=== PATIENT | male | born 1955 | race Caucasian/White ===

== ENCOUNTER 2022-06-25 09:59 | Inpatient (IN) | payer OTHER ==
[~2022-06-25] VITALS: Ht 177.8 cm; Wt 100.0 kg
[2022-06-25 10:21] LABS: Basophils # (auto) 0 10 ^3/uL (0-0.2); Basophils % (auto) 0.4 % (0.0-2.0); Hemoglobin 15.9 g/dL (13.5-17.5); Monocytes # (auto) 0.7 10 ^3/uL (0-1.3); White Blood Cell 11.1 10^3/uL (4.4-10.8)
[2022-06-25 10:23] LABS: Eosinophils # (auto) 0.3 10 ^3/uL (0-0.8); Eosinophils % (auto) 2.3 % (0.0-7.0); Hematocrit 47.8 % (41.0-53.0); Lymphocytes % (auto) 9.1 % (10.0-50.0); Mean Corpuscular Hemoglobin 34.2 pg (28.0-32.0); Mean Corpuscular Hgb Conc. 33.4 g/dL (32.0-36.0); Mean Corpuscular Volume 102.5 fL (80.0-100.0); Monocytes % (auto) 5.9 % (0.0-12.0); Neutrophils # (auto) 9.1 10 ^3/uL (1.6-8.6); Neutrophils % (auto) 82.3 % (37.0-80.0); Red Blood Cells 4.66 10^6/uL (4.5-5.90); Red Cell Distribution Width 12.9 % (11.8-14.3)
[2022-06-25] MEDS ORDERED: FUROSEMIDE 40 MG/4 ML VIAL IV ONE (10:30)
[2022-06-25] MEDS ORDERED: IPRATROPIUM BROM 0.5 MG/2.5ML INH SOL NEB ONE (10:30)
[2022-06-25] MEDS ORDERED: ASPirin 325 MG TAB PO ONE (10:30)
[2022-06-25] MEDS ORDERED: ALBUTEROL SULF 2.5 MG/0.5ML(0.5%) NEB SOLN NEB ONE (10:30)
[2022-06-25] MEDS ORDERED: ALBUTEROL MEDNEB 2.5 mg/3ml NEB ONE (10:31)
[2022-06-25 10:35] LABS: Albumin 4.2 g/dL (3.4-5.0); Calcium 9.5 mg/dL (8.5-10.1); Potassium 4.4 mmol/L (3.5-5.1)
[2022-06-25 10:38] LABS: BUN/Creatinine Ratio 13.9; Bilirubin, Total 0.6 mg/dL (0.2-1.0); Total Protein 7.6 g/dL (6.4-8.2)
[2022-06-25] MEDS ORDERED: MORPHINE SULFATE INJ 2 MG/ml SYRG IV PRN (13:30)
[2022-06-25] MEDS ORDERED: NITROGLYCERIN 0.4 MG SL TAB SL PRN (13:30)
[2022-06-25 13:48] VITALS: BP 172/93
[2022-06-25] MEDS ORDERED: cefTRIAXone 1GM/50ML D5W 50 ML IV ONE (14:00)
[2022-06-25] MEDS ORDERED: PANTOPRAZOLE 40 MG/10 ML VIAL INJ IV ONE (14:00)
[2022-06-25] MEDS ORDERED: AZITHROMYCIN 500MG/ 250ML 250 ML IV ONE (14:00)
[2022-06-25] MEDS ORDERED: methylPREDNISolone SOD SUCC 125 MG/2 ML VL IV ONE (14:15)
[2022-06-25 14:36] LABS: Cholesterol 216 mg/dL (< 200); HDL Cholesterol 64 mg/dL (40-59); LDL Cholesterol 142 mg/dL (< 100); Triglycerides 133 mg/dL (< 150)
[2022-06-25] MEDS: ALBUTEROL SULF 2.5 MG/0.5ML(0.5%) NEB SOLN NEB PRN (15:40)
[2022-06-25] MEDS: ACETAMINOPHEN 325 MG TAB PO PRN (15:43)
[2022-06-25] MEDS: SODIUM CHLORIDE 0.9% 1,000 ML IV SCH (16:22)
[2022-06-25] MEDS ORDERED: IPRATROPIUM BROM 0.5 MG/2.5ML INH SOL NEB SCH (18:00)
[2022-06-25] MEDS ORDERED: ALBUTEROL MEDNEB 2.5 mg/3ml NEB NEB SCH (18:00)
[2022-06-25] MEDS ORDERED: KETOROLAC TROMETH 30 MG/ML 1ML VIAL IV PRN (19:00)
[2022-06-25] MEDS ORDERED: KETOROLAC TROMETH 30 MG/ML 1ML VIAL IV ONE (19:00)
[2022-06-25 21:37] LABS: Urine Bacteria NONE SEEN /hpf (None Seen); Urine Blood Negative /uL (Negative); Urine Hyaline Cast FEW /lpf (0 - 2); Urine Mucus FEW (None Seen); Urine Specific Gravity 1.021 (1.001-1.035); Urine WBC 1 /hpf (0 - 3)
[2022-06-25] MEDS: methylPREDNISolone SOD SUCC 125 MG/2 ML VL IV SCH (21:41)
[2022-06-25] MEDS: IPRATROPIUM BROM 0.5 MG/2.5ML INH SOL NEB SCH (23:26)
[2022-06-25] MEDS: ALBUTEROL MEDNEB 2.5 mg/3ml NEB NEB SCH (23:26)
[2022-06-26] MEDS: ALBUTEROL MEDNEB 2.5 mg/3ml NEB NEB SCH ×6 (04:01→22:21)
[2022-06-26] MEDS: IPRATROPIUM BROM 0.5 MG/2.5ML INH SOL NEB SCH ×6 (04:01→22:21)
[2022-06-26] MEDS: SODIUM CHLORIDE 0.9% 1,000 ML IV SCH ×2 (06:10→22:04)
[2022-06-26 06:13] LABS: Basophils # (auto) 0 10 ^3/uL (0-0.2); Basophils % (auto) 0.1 % (0.0-2.0); Eosinophils # (auto) 0 10 ^3/uL (0-0.8); Hemoglobin 14.8 g/dL (13.5-17.5); Lymphocytes # (auto) 0.5 10 ^3/uL (0.4-5.4); Lymphocytes % (auto) 5.2 % (10.0-50.0); Mean Corpuscular Hemoglobin 35.1 pg (28.0-32.0); Mean Corpuscular Hgb Conc. 33.7 g/dL (32.0-36.0); Mean Corpuscular Volume 104.1 fL (80.0-100.0); Monocytes # (auto) 0.2 10 ^3/uL (0-1.3); Monocytes % (auto) 1.7 % (0.0-12.0); Neutrophils # (auto) 9.2 10 ^3/uL (1.6-8.6); Nucleated Red Blood Cells % 0.1 %; Red Blood Cells 4.23 10^6/uL (4.5-5.90); Red Cell Distribution Width 13.2 % (11.8-14.3); White Blood Cell 9.9 10^3/uL (4.4-10.8)
[2022-06-26 06:32] LABS: Potassium 4.2 mmol/L (3.5-5.1)
[2022-06-26 06:38] LABS: Albumin 3.8 g/dL (3.4-5.0); BUN/Creatinine Ratio 16.5; Bilirubin, Total 0.5 mg/dL (0.2-1.0)
[2022-06-26] MEDS ORDERED: PANTOPRAZOLE 40 MG/10 ML VIAL INJ IV SCH (10:00)
[2022-06-26] MEDS ORDERED: ENOXAPARIN SOD 40 MG/0.4 ML SYRINGE SC SCH (10:00)
[2022-06-26] MEDS: cefTRIAXone 1GM/50ML D5W 50 ML IV SCH (10:33)
[2022-06-26] MEDS: AZITHROMYCIN 500MG/ 250ML 250 ML IV SCH (11:28)
[2022-06-26] MEDS: methylPREDNISolone SOD SUCC 125 MG/2 ML VL IV SCH ×2 (11:31→22:02)
[2022-06-26] MEDS: ASPirin 81 mg TAB PO SCH (11:31)
[2022-06-26] MEDS: METOPROLOL TARTRATE 50 MG TAB PO SCH ×2 (11:32→22:03)
[2022-06-26 12:25] VITALS: BP 119/53
[2022-06-26] MEDS ORDERED: AMIODARONE HCL 200 MG TAB PO ONE ×2 (12:45→13:45)
[2022-06-26] MEDS ORDERED: EMPA1TAB3 PO (13:15)
[2022-06-26] MEDS ORDERED: SACU1TAB7 PO (13:15)
[2022-06-26] MEDS ORDERED: SPIR25TA8 PO ×2 (13:15→13:17)
[2022-06-26] MEDS ORDERED: AMIO200T33 PO (13:15)
[2022-06-26] MEDS ORDERED: FURO20TA3 PO (13:15)
[2022-06-26] MEDS ORDERED: ALBUAER3 IN (13:15)
[2022-06-26] MEDS ORDERED: APIX5TAB PO (13:15)
[2022-06-26] MEDS ORDERED: AMIO100T3 PO (13:34)
[2022-06-26] MEDS ORDERED: IOHEXOL 350 MG/ML 100ML IJ ONE (13:54)
[2022-06-26 14:24] LABS: Alcohol, Urine < 3.0 mg/dL (0-10); Amphetamine Screen, Urine NEGATIVE (NEGATIVE); Barbiturate Scree,Urine NEGATIVE (NEGATIVE); Benzodiazephine Screen, Urine NEGATIVE (NEGATIVE); Cannabinoid Screen, Urine NEGATIVE (NEGATIVE); Cocaine Screen, Urine NEGATIVE (NEGATIVE); Opiate Scree,Urine NEGATIVE (NEGATIVE); Phencyclidine Screen, Urine NEGATIVE (NEGATIVE)
[2022-06-26] MEDS: MORPHINE SULFATE INJ 2 MG/ml SYRG IV PRN ×2 (15:52→22:05)
[2022-06-26 22:00] VITALS: BP 141/75
[2022-06-26] MEDS ORDERED: AMIODARONE HCL 200 MG TAB PO SCH ×2 (22:00)
[2022-06-26] MEDS: ATORVASTATIN 20 MG TAB PO SCH (22:02)
[2022-06-26] MEDS: ENOXAPARIN SOD 100 MG/1 ML SYRINGE SC SCH (22:03)
[2022-06-27] MEDS: IPRATROPIUM BROM 0.5 MG/2.5ML INH SOL NEB SCH ×6 (02:21→22:20)
[2022-06-27] MEDS: ALBUTEROL MEDNEB 2.5 mg/3ml NEB NEB SCH ×6 (02:21→22:21)
[2022-06-27 05:00] VITALS: BP 121/65
[2022-06-27 08:56] VITALS: BP 132/70
[2022-06-27] MEDS ORDERED: REGADENOSON 0.4 MG/5 ML SYRG IV ONE (09:45)
[2022-06-27] MEDS: ENOXAPARIN SOD 100 MG/1 ML SYRINGE SC SCH ×2 (10:09→22:23)
[2022-06-27] MEDS: ASPirin 81 mg TAB PO SCH (10:10)
[2022-06-27] MEDS: methylPREDNISolone SOD SUCC 125 MG/2 ML VL IV SCH ×2 (10:10→22:22)
[2022-06-27] MEDS: METOPROLOL TARTRATE 50 MG TAB PO SCH ×2 (10:11→22:23)
[2022-06-27] MEDS: cefTRIAXone 1GM/50ML D5W 50 ML IV SCH (10:12)
[2022-06-27] MEDS: AMIODARONE HCL 200 MG TAB PO SCH (10:22)
[2022-06-27] MEDS: MORPHINE SULFATE INJ 2 MG/ml SYRG IV PRN ×3 (10:41→22:38)
[2022-06-27] MEDS: AZITHROMYCIN 500MG/ 250ML 250 ML IV SCH (11:58)
[2022-06-27 13:00] VITALS: BP 136/68
[2022-06-27] MEDS: SODIUM CHLORIDE 0.9% 1,000 ML IV SCH (16:32)
[2022-06-27 17:00] VITALS: BP 119/62
[2022-06-27] MEDS: ALBUTEROL SULF 2.5 MG/0.5ML(0.5%) NEB SOLN NEB PRN ×3 (18:41→22:20)
[2022-06-27 22:00] VITALS: BP 111/72
[2022-06-27] MEDS: ATORVASTATIN 20 MG TAB PO SCH (22:22)
[2022-06-28] VITALS (9 sets, daily range): BP systolic 120–153; BP diastolic 59–87
[2022-06-28] MEDS: ALBUTEROL MEDNEB 2.5 mg/3ml NEB NEB SCH ×6 (02:41→21:58)
[2022-06-28] MEDS: ALBUTEROL SULF 2.5 MG/0.5ML(0.5%) NEB SOLN NEB PRN ×2 (02:41→14:06)
[2022-06-28] MEDS: IPRATROPIUM BROM 0.5 MG/2.5ML INH SOL NEB SCH ×6 (02:41→21:58)
[2022-06-28 06:32] LABS: BUN/Creatinine Ratio 26.5; Calcium 8.9 mg/dL (8.5-10.1); INR 1.01 (0.9-1.15); Partial Thromboplastin Time 27.7 sec (24.6-33.4); Potassium 4.6 mmol/L (3.5-5.1)
[2022-06-28 06:37] LABS: Basophils # (auto) 0 10 ^3/uL (0-0.2); Eosinophils # (auto) 0 10 ^3/uL (0-0.8); Hemoglobin 13.4 g/dL (13.5-17.5); Lymphocytes # (auto) 0.5 10 ^3/uL (0.4-5.4); White Blood Cell 11.7 10^3/uL (4.4-10.8)
[2022-06-28 06:39] LABS: Hematocrit 41.3 % (41.0-53.0); Lymphocytes % (auto) 4.5 % (10.0-50.0); Mean Corpuscular Hemoglobin 33.4 pg (28.0-32.0); Mean Corpuscular Hgb Conc. 32.4 g/dL (32.0-36.0); Mean Corpuscular Volume 103.1 fL (80.0-100.0); Monocytes # (auto) 0.2 10 ^3/uL (0-1.3); Monocytes % (auto) 2.1 % (0.0-12.0); Neutrophils # (auto) 10.9 10 ^3/uL (1.6-8.6); Neutrophils % (auto) 93.4 % (37.0-80.0); Red Blood Cells 4.01 10^6/uL (4.5-5.90); Red Cell Distribution Width 12.9 % (11.8-14.3)
[2022-06-28] MEDS: MORPHINE SULFATE INJ 2 MG/ml SYRG IV PRN ×3 (06:55→22:08)
[2022-06-28] MEDS: SODIUM CHLORIDE 0.9% 1,000 ML IV SCH ×2 (08:39→12:24)
[2022-06-28] MEDS: cefTRIAXone 1GM/50ML D5W 50 ML IV SCH (09:00)
[2022-06-28] MEDS: AMIODARONE HCL 200 MG TAB PO SCH (10:00)
[2022-06-28] MEDS: AZITHROMYCIN 500MG/ 250ML 250 ML IV SCH (10:00)
[2022-06-28] MEDS: ASPirin 81 mg TAB PO SCH (10:00)
[2022-06-28] MEDS: METOPROLOL TARTRATE 50 MG TAB PO SCH ×2 (10:00→21:57)
[2022-06-28] MEDS: methylPREDNISolone SOD SUCC 125 MG/2 ML VL IV SCH ×2 (10:00→21:56)
[2022-06-28] MEDS: ENOXAPARIN SOD 100 MG/1 ML SYRINGE SC SCH ×2 (10:00→21:58)
[2022-06-28] MEDS ORDERED: ANGIOMAX 250 MG VIAL IV ONE (10:12)
[2022-06-28] MEDS ORDERED: VERAPAMIL 2.5MG/ML INJ 2ML VIAL IV ONE (10:12)
[2022-06-28] MEDS ORDERED: HEPARIN SODIUM (PORCINE) 5000 UNITS/ML 1ML VIAL ONE (10:12)
[2022-06-28] MEDS ORDERED: LIDOCAINE 2%HCL (LOCAL ANESTH.) INJ 10ml MDV ONE (10:13)
[2022-06-28] MEDS ORDERED: MIDAZOLAM HCL 2MG/2ML 2ml VIAL (1mg/ml) ONE (10:13)
[2022-06-28] MEDS ORDERED: SODIUM CHL 0.9% 0 ML ONE (10:13)
[2022-06-28] MEDS ORDERED: fentaNYL CITRATE 100 MCG/2 ML VL ONE (10:13)
[2022-06-28] MEDS ORDERED: IODIXANOL 320MG/ML 100ML BTL IV ONE (10:14)
[2022-06-28] MEDS: ACETAMINOPHEN 325 MG TAB PO PRN (16:10)
[2022-06-28] MEDS: ATORVASTATIN 20 MG TAB PO SCH (21:57)
[2022-06-29] MEDS: ALBUTEROL MEDNEB 2.5 mg/3ml NEB NEB SCH ×6 (02:47→22:51)
[2022-06-29] MEDS: IPRATROPIUM BROM 0.5 MG/2.5ML INH SOL NEB SCH ×6 (02:47→22:51)
[2022-06-29 05:00] VITALS: BP 122/71
[2022-06-29] MEDS: MORPHINE SULFATE INJ 2 MG/ml SYRG IV PRN ×3 (08:31→22:37)
[2022-06-29 09:00] VITALS: BP 118/68
[2022-06-29] MEDS: ENOXAPARIN SOD 100 MG/1 ML SYRINGE SC SCH (09:26)
[2022-06-29] MEDS: cefTRIAXone 1GM/50ML D5W 50 ML IV SCH (09:26)
[2022-06-29] MEDS: AZITHROMYCIN 500MG/ 250ML 250 ML IV SCH (09:26)
[2022-06-29] MEDS: METOPROLOL TARTRATE 50 MG TAB PO SCH ×2 (09:27→22:00)
[2022-06-29] MEDS: methylPREDNISolone SOD SUCC 125 MG/2 ML VL IV SCH ×2 (09:27→22:00)
[2022-06-29] MEDS: ASPirin 81 mg TAB PO SCH (09:28)
[2022-06-29] MEDS: AMIODARONE HCL 200 MG TAB PO SCH (09:28)
[2022-06-29 13:00] VITALS: BP 146/69
[2022-06-29] MEDS: SACUBITRIL-VALSARTAN 24mg/26mg TAB PO SCH ×2 (15:12→22:00)
[2022-06-29 17:00] VITALS: BP 100/56
[2022-06-29] MEDS: SODIUM CHLORIDE 0.9% 1,000 ML IV SCH (17:30)
[2022-06-29] MEDS: ALBUTEROL SULF 2.5 MG/0.5ML(0.5%) NEB SOLN NEB PRN (21:03)
[2022-06-29] MEDS ORDERED: ALBUTEROL MEDNEB 2.5 mg/3ml NEB ONE (21:14)
[2022-06-29 22:00] VITALS: BP 104/55
[2022-06-29] MEDS: APIXABAN 5 MG TAB PO SCH (22:00)
[2022-06-29] MEDS: ATORVASTATIN 20 MG TAB PO SCH (22:00)
[2022-06-30] MEDS: IPRATROPIUM BROM 0.5 MG/2.5ML INH SOL NEB SCH ×4 (02:21→14:12)
[2022-06-30] MEDS: ALBUTEROL MEDNEB 2.5 mg/3ml NEB NEB SCH ×4 (02:21→14:12)
[2022-06-30] MEDS: MORPHINE SULFATE INJ 2 MG/ml SYRG IV PRN ×2 (03:59→10:45)
[2022-06-30 05:00] VITALS: BP 106/68
[2022-06-30] MEDS: SPIRONOLACTONE 25 MG TAB PO SCH ×2 (05:30→06:00)
[2022-06-30 08:00] VITALS: BP 127/64
[2022-06-30] MEDS: cefTRIAXone 1GM/50ML D5W 50 ML IV SCH (10:09)
[2022-06-30] MEDS: AZITHROMYCIN 500MG/ 250ML 250 ML IV SCH (10:10)
[2022-06-30] MEDS: methylPREDNISolone SOD SUCC 125 MG/2 ML VL IV SCH (10:12)
[2022-06-30] MEDS: ASPirin 81 mg TAB PO SCH (10:12)
[2022-06-30] MEDS: SACUBITRIL-VALSARTAN 24mg/26mg TAB PO SCH (10:13)
[2022-06-30] MEDS: METOPROLOL TARTRATE 50 MG TAB PO SCH (10:13)
[2022-06-30] MEDS: AMIODARONE HCL 200 MG TAB PO SCH (10:13)
[2022-06-30] MEDS: APIXABAN 5 MG TAB PO SCH (10:13)
[2022-06-30] MEDS ORDERED: PRED20TA2 PO (10:14)
[2022-06-30] MEDS ORDERED: AZIT500T66 PO (10:14)
[2022-06-30] MEDS ORDERED: DEXT1SYP9 PO (10:14)
[2022-06-30] MEDS ORDERED: ALBUAER3 IN (10:14)
[2022-06-30 11:02] VITALS: BP 127/64
[2022-06-30 12:00] VITALS: BP 127/81
== END 2022-06-30 16:00 | disposition home or self-care (01) | DRG 286 ==
LOC: ER 09:59 → TELE 13:32 → TELE-E-ADS 06-26 11:52 → TELE-CENTR 06-26 17:46
PROVIDERS: ADMIT Nurse Practitioner Family; ATTEND Family Medicine
PROC: 4A023N7 Measurement of Cardiac Sampling and Pressure, Left Heart, Percutaneous Approach (ICD-10-PCS; principal; 2022-06-28)
PROC: B211YZZ Fluoroscopy of Multiple Coronary Arteries using Other Contrast (ICD-10-PCS; 2022-06-28)
PROC: B215YZZ Fluoroscopy of Left Heart using Other Contrast (ICD-10-PCS; 2022-06-28)
DX: I11.0 Hypertensive heart disease with heart failure (principal); I50.43 Acute on chronic combined systolic (congestive) and diastolic (congestive) heart failure; J96.01 Acute respiratory failure with hypoxia; J44.1 Chronic obstructive pulmonary disease with (acute) exacerbation; I24.9 Acute ischemic heart disease, unspecified; D72.829 Elevated white blood cell count, unspecified; Z20.822 Contact with and (suspected) exposure to COVID-19; E11.65 Type 2 diabetes mellitus with hyperglycemia; E66.9 Obesity, unspecified; I48.0 Paroxysmal atrial fibrillation; E78.00 Pure hypercholesterolemia, unspecified; Z79.01 Long term (current) use of anticoagulants; Z79.82 Long term (current) use of aspirin; Z68.31 Body mass index [BMI] 31.0-31.9, adult; Z87.891 Personal history of nicotine dependence; Z86.718 Personal history of other venous thrombosis and embolism
CPT/HCPCS: 36415; 36600; 71045; 71275; 78452; 80048; 80053; 80061; 80307; 81001; 82805; 82962; 83036; 83880; 84443; 84484; 85025; 85379; 85610; 85730; 86850; 86900; 86901; 87040; 87426; 87804; 93005; 93017; 93306; 94640; 96374; 99152; C9113; G0378; J0696; J1885; J2001; J2250; Q9967